=== PATIENT | male | born 1940 | race Caucasian/White ===

== ENCOUNTER 2018-03-25 10:09 | Inpatient (IN) ==
[2018-03-25] MEDS ORDERED: ENOXAPARIN 100 MG/ML SYRINGE SUBCUT STA (10:40)
[2018-03-25 10:53] LABS: Basophils % 0.4 % (0.0-0.8); Eosinophils # 0.1 10*3/uL (0.0-0.87); Eosinophils % 1.6 % (0.00-10.9); Hematocrit 40.8 VOL% (42.0-52.0); Hemoglobin 13.7 GM/DL (14.0-18.0); Immature Granulocytes % 0.4 %; Immature Granulocytes Absolute 0.02 #; Lymphocytes # 1.3 10*3/uL (1.4-4.0); Lymphocytes % 25.8 % (21.2-54.2); Mean Corpuscular HGB Conc 33.6 GM/DL (32-36); Mean Corpuscular Hemoglobin 30 PG (27-34); Mean Corpuscular Volume 90.7 FL (87-102); Mean Platelet Volume 9.4 FL (9.6-12.0); Monocytes # 0.3 10*3/uL (0.11-0.8); Monocytes % 6.8 % (1.7-12.7); Neutrophils # 3.3 10*3/uL (1.4-7.4); Platelet Count 158 T/CUMM (130-400); Red Cell Distribution Width 12.5 % (9.3-17.3)
[2018-03-25] MEDS ORDERED: ENOXAPARIN 120 MG/0.8 ML SYRINGE SUBCUT ONE (11:07)
[2018-03-25 11:24] LABS: Albumin 3.7 G/DL (3.4-5.0); Bilirubin,Total 0.7 MG/DL (0.2-1.0); CKMB % 3.3 %; Calcium 8.8 MG/DL (8.5-10.1); Osmolality,Calculated 284.4 MOS/KG (273-304); Potassium 3.9 MMOL/L (3.5-5.1); Total Protein 7.1 G/DL (6.4-8.3); Troponin I 0.113 NG/ML (0.00-0.045)
[2018-03-25] MEDS ORDERED: LACTULOSE 20 GM/30 ML UDCUP PO PRN (14:46)
[2018-03-25] MEDS ORDERED: POTASSIUM CHLORIDE 20 MEQ TABLET PO PRN (14:46)
[2018-03-25] MEDS ORDERED: MORPHINE 4 MG/1 ML VIAL IV PRN (14:46)
[2018-03-25] MEDS ORDERED: ONDANSETRON 4 MG/2 ML VIAL IV PRN (14:46)
[2018-03-25] MEDS ORDERED: DOCUSATE SODIUM 100 MG CAPSULE PO PRN (14:46)
[2018-03-25] MEDS ORDERED: MAGNESIUM SULF RIDER 2 GM in PREMIX 1 EACH IV PRN ×2 (14:46→17:24)
[2018-03-25] MEDS ORDERED: ALUM/MAG/SIMETH/LIDO VISC 1:1 30 ML BOTTLE PO PRN (15:00)
[2018-03-25] MEDS ORDERED: CARVEDILOL 12.5 MG TABLET PO SCH (17:00)
[2018-03-25] MEDS: CARVEDILOL 25 MG TABLET PO SCH (17:06)
[2018-03-25] MEDS: NITROGLYCERIN 2% OINT 1 INCH/GM PACK TOP SCH (17:06)
[2018-03-25] MEDS: GABAPENTIN 400 MG CAPSULE PO SCH ×2 (17:06→20:48)
[2018-03-25] MEDS ORDERED: POTASSIUM CHLORIDE RIDER 10 MEQ in PREMIX 1 EACH IV PRN (17:24)
[2018-03-25 18:00] LABS: PT Patient Result 10.7 SECS
[2018-03-25] MEDS: SODIUM CHLORIDE 0.45% 1,000 ML IV SCH (18:15)
[2018-03-25 20:08] LABS: CKMB % 6.4 %
[2018-03-25 20:18] LABS: Troponin I 2.73 NG/ML (0.00-0.045)
[2018-03-25] MEDS: ATORVASTATIN 40 MG TABLET PO SCH (20:48)
[2018-03-25] MEDS: BENZTROPINE 1 MG TABLET PO SCH (20:48)
[2018-03-25] MEDS: CARBIDOPA/LEVODOPA 25-100 MG TABLET PO SCH (20:48)
[2018-03-25] MEDS: glipiZIDE 5 MG TABLET PO SCH (20:48)
[2018-03-26] MEDS: ENOXAPARIN 120 MG/0.8 ML SYRINGE SUBCUT SCH ×2 (00:06→09:53)
[2018-03-26] MEDS: NITROGLYCERIN 2% OINT 1 INCH/GM PACK TOP SCH ×3 (00:07→13:10)
[2018-03-26 03:27] LABS: Basophils % 0.4 % (0.0-0.8); Eosinophils # 0.1 10*3/uL (0.0-0.87); Eosinophils % 1.3 % (0.00-10.9); Hematocrit 36.2 VOL% (42.0-52.0); Hemoglobin 12.2 GM/DL (14.0-18.0); Immature Granulocytes % 0.2 %; Immature Granulocytes Absolute 0.01 #; Lymphocytes # 2.1 10*3/uL (1.4-4.0); Mean Corpuscular HGB Conc 33.7 GM/DL (32-36); Mean Corpuscular Hemoglobin 31 PG (27-34); Mean Corpuscular Volume 90.5 FL (87-102); Mean Platelet Volume 9.6 FL (9.6-12.0); Monocytes # 0.5 10*3/uL (0.11-0.8); Monocytes % 8.5 % (1.7-12.7); Neutrophils # 2.9 10*3/uL (1.4-7.4); Neutrophils % 51.6 % (38.7-73.9); Platelet Count 155 T/CUMM (130-400); Red Cell Distribution Width 12.5 % (9.3-17.3); White Blood Count 5.5 T/CUMM (4-12)
[2018-03-26 04:03] LABS: Osmolality,Calculated 281.4 MOS/KG (273-304); Potassium 3.8 MMOL/L (3.5-5.1); Risk Ratio 4.16; Thyroid Stimulating Hormone 1.83 uIU/ml (0.358-3.74); VLDL CHOLESTEROL 50.8 MG/DL
[2018-03-26] MEDS: SODIUM CHLORIDE 0.45% 1,000 ML IV SCH ×3 (05:22→17:44)
[2018-03-26 06:55] LABS: CKMB % 5.2 %
[2018-03-26 06:56] LABS: Troponin I 2.04 NG/ML (0.00-0.045)
[2018-03-26] MEDS ORDERED: diphenhydrAMINE CAP 25 MG CAPSULE PO ONE (08:00)
[2018-03-26] MEDS ORDERED: DIAZEPAM 5 MG TABLET PO ONE (08:00)
[2018-03-26] MEDS ORDERED: PANTOPRAZOLE 40 MG TABLET PO SCH (09:00)
[2018-03-26] MEDS: CARVEDILOL 25 MG TABLET PO SCH ×2 (09:43→16:32)
[2018-03-26] MEDS: FERROUS SULFATE 325 MG TABLET PO SCH (09:44)
[2018-03-26] MEDS: ASPIRIN EC 81 MG TABLET PO SCH (09:44)
[2018-03-26] MEDS: glipiZIDE 5 MG TABLET PO SCH ×2 (09:44→23:08)
[2018-03-26] MEDS: GABAPENTIN 400 MG CAPSULE PO SCH ×4 (09:44→23:07)
[2018-03-26] MEDS: TAMSULOSIN 0.4 MG CAPSULE PO SCH (09:44)
[2018-03-26] MEDS: CLOPIDOGREL 75 MG TABLET PO SCH (09:45)
[2018-03-26] MEDS: ALLOPURINOL 300 MG TABLET PO SCH (09:45)
[2018-03-26] MEDS: CARBIDOPA/LEVODOPA 25-100 MG TABLET PO SCH ×3 (09:45→23:08)
[2018-03-26] MEDS ORDERED: LIDOCAINE 1%/EPI INJ 20 ML VIAL ONE (10:19)
[2018-03-26] MEDS ORDERED: HEPARIN/NACL 0.9% 2 UNITS/ML 1,000 ML IV ONE (10:19)
[2018-03-26] MEDS ORDERED: MIDAZOLAM 2 MG/2 ML VIAL ONE (10:48)
[2018-03-26] MEDS ORDERED: fentaNYL 100 MCG/2 ML VIAL ONE (10:48)
[2018-03-26] MEDS ORDERED: TIROFIBAN 5,000 MCG/100 ML PREMIX IV ONE (11:06)
[2018-03-26] MEDS ORDERED: TIROFIBAN 5,000 MCG/100 ML PREMIX IV SCH (11:18)
[2018-03-26] MEDS ORDERED: NITROGLYCERIN DRIP 50 MG/250 ML BOTTLE IV PRN (11:29)
[2018-03-26] MEDS ORDERED: CLOPIDOGREL 300 MG TABLET ONE (11:39)
[2018-03-26] MEDS ORDERED: NON-FORMULARY MEDICATION (Nicotine Polacrilex [Nicotine Lozenge] 4 MG) BUCCAL SCH (13:08)
[2018-03-26] MEDS ORDERED: diphenhydrAMINE CAP 25 MG CAPSULE PO PRN (14:11)
[2018-03-26] MEDS: BENZTROPINE 1 MG TABLET PO SCH (23:07)
[2018-03-26] MEDS: ATORVASTATIN 40 MG TABLET PO SCH (23:08)
[2018-03-27 04:09] LABS: Basophils % 0.3 % (0.0-0.8); Eosinophils # 0.1 10*3/uL (0.0-0.87); Eosinophils % 1.1 % (0.00-10.9); Hematocrit 36.8 VOL% (42.0-52.0); Hemoglobin 12.3 GM/DL (14.0-18.0); Immature Granulocytes % 0.2 %; Immature Granulocytes Absolute 0.01 #; Lymphocytes # 1.4 10*3/uL (1.4-4.0); Mean Corpuscular HGB Conc 33.4 GM/DL (32-36); Mean Corpuscular Hemoglobin 30 PG (27-34); Mean Corpuscular Volume 90.2 FL (87-102); Mean Platelet Volume 10.1 FL (9.6-12.0); Monocytes # 0.3 10*3/uL (0.11-0.8); Monocytes % 5.5 % (1.7-12.7); Neutrophils # 4.4 10*3/uL (1.4-7.4); Neutrophils % 70.9 % (38.7-73.9); Platelet Count 115 T/CUMM (130-400); Red Blood Count 4.08 MC/CUMM (3.8-5.5); Red Cell Distribution Width 12.5 % (9.3-17.3); White Blood Count 6.1 T/CUMM (4-12)
[2018-03-27 04:31] LABS: Calcium 8.1 MG/DL (8.5-10.1); Osmolality,Calculated 285.3 MOS/KG (273-304); Potassium 3.9 MMOL/L (3.5-5.1)
[2018-03-27] MEDS ORDERED: PANTOPRAZOLE 40 MG TABLET PO SCH (09:00)
[2018-03-27] MEDS ORDERED: CHOLECALCIFEROL 1,000 UNIT TABLET PO SCH (09:00)
[2018-03-27] MEDS ORDERED: CYANOCOBALAMIN 500 MCG TABLET PO SCH (09:00)
[2018-03-27] MEDS: CLOPIDOGREL 75 MG TABLET PO SCH (09:05)
[2018-03-27] MEDS: GABAPENTIN 400 MG CAPSULE PO SCH (09:07)
[2018-03-27] MEDS: CARBIDOPA/LEVODOPA 25-100 MG TABLET PO SCH (09:08)
[2018-03-27] MEDS: ALLOPURINOL 300 MG TABLET PO SCH (09:08)
[2018-03-27] MEDS: FERROUS SULFATE 325 MG TABLET PO SCH (09:08)
[2018-03-27] MEDS: CARVEDILOL 25 MG TABLET PO SCH (09:08)
[2018-03-27] MEDS: ASPIRIN EC 81 MG TABLET PO SCH (09:08)
[2018-03-27] MEDS: TAMSULOSIN 0.4 MG CAPSULE PO SCH (09:08)
[2018-03-27] MEDS: glipiZIDE 5 MG TABLET PO SCH (09:09)
[2018-03-27 11:09] VITALS: BP 118/59
== END 2018-03-27 12:37 | disposition home or self-care (01) | DRG 247 ==
LOC: N.EDINP 10:09 → N.ED 10:09 → N.EDINP 15:15 → N.TELES 15:31 → N.ICU 03-26 11:50
PROVIDERS: ADMIT Internal Medicine; ATTEND Internal Medicine
PROC: CLCCHCL (ICD-10-PCS; 2018-03-26 10:45)

== ENCOUNTER 2018-07-26 13:11 | Inpatient (IN) ==
[2018-07-26 13:54] LABS: Basophils % 0.3 % (0.0-0.8); Eosinophils # 0.1 10*3/uL (0.0-0.87); Eosinophils % 1.4 % (0.00-10.9); Hematocrit 38.1 VOL% (42.0-52.0); Hemoglobin 12.6 GM/DL (14.0-18.0); Immature Granulocytes % 0.3 %; Immature Granulocytes Absolute 0.02 #; Lymphocytes # 1.1 10*3/uL (1.4-4.0); Lymphocytes % 17.9 % (21.2-54.2); Mean Corpuscular HGB Conc 33.1 GM/DL (32-36); Mean Corpuscular Hemoglobin 30 PG (27-34); Mean Corpuscular Volume 90.1 FL (87-102); Mean Platelet Volume 9.7 FL (9.6-12.0); Monocytes # 0.4 10*3/uL (0.11-0.8); Monocytes % 6.1 % (1.7-12.7); Neutrophils # 4.4 10*3/uL (1.4-7.4); Platelet Count 151 T/CUMM (130-400); Red Blood Count 4.23 MC/CUMM (3.8-5.5); Red Cell Distribution Width 13.1 % (9.3-17.3); White Blood Count 5.9 T/CUMM (4-12)
[2018-07-26] MEDS ORDERED: ASPIRIN 325 MG TABLET PO STA (14:10)
[2018-07-26] MEDS ORDERED: NITROGLYCERIN SL 0.4 MG TABLET SL PRN ×2 (14:10→17:02)
[2018-07-26 14:17] LABS: Albumin 3.5 G/DL (3.4-5.0); Bilirubin,Total 0.4 MG/DL (0.2-1.0); Calcium 8.3 MG/DL (8.5-10.1); Osmolality,Calculated 285.3 MOS/KG (273-304); Potassium 4.2 MMOL/L (3.5-5.1)
[2018-07-26 16:10] LABS: Apearance,Urine CLEAR (Clear); Bilirubin,Urine Negative (Negative); Blood, Urine Negative (Negative); Glucose,Urine (UA) Negative (Negative); Ketones,Urine Negative (Negative); Nitrite,Urine Negative (Negative); Protein,Urine Negative; RBC,Urine <1 /HPF (0-4); Urine Color Straw (Yellow); Urine Urobilinogen < 2.0 EU/DL (0.2-1.0)
[2018-07-26] MEDS ORDERED: DEXTROSE 50% 25 GM/50 ML VIAL IV PRN (17:00)
[2018-07-26] MEDS ORDERED: ONDANSETRON 4 MG/2 ML VIAL IV PRN (17:00)
[2018-07-26] MEDS ORDERED: GLUCAGON 1 MG VIAL IM PRN (17:00)
[2018-07-26] MEDS ORDERED: MAGNESIUM SULF RIDER 2 GM in PREMIX 1 EACH IV PRN (17:03)
[2018-07-26] MEDS ORDERED: NON-FORMULARY MEDICATION (Nicotine Polacrilex [Nicotine Lozenge] 4 MG) BUCCAL SCH (17:15)
[2018-07-26] MEDS ORDERED: ATORVASTATIN 40 MG TABLET PO SCH (17:30)
[2018-07-26] MEDS: SODIUM CHLORIDE 0.45% 1,000 ML IV SCH (18:12)
[2018-07-26] MEDS: ENOXAPARIN 120 MG/0.8 ML SYRINGE SUBCUT SCH (18:13)
[2018-07-26] MEDS: NITROGLYCERIN 2% OINT 1 INCH/GM PACK TOP SCH (18:14)
[2018-07-26 18:43] LABS: Basophils % 0.1 % (0.0-0.8); Eosinophils # 0.1 10*3/uL (0.0-0.87); Eosinophils % 1.3 % (0.00-10.9); Hematocrit 42.4 VOL% (42.0-52.0); Hemoglobin 13.6 GM/DL (14.0-18.0); Immature Granulocytes % 0.3 %; Immature Granulocytes Absolute 0.02 #; Lymphocytes % 29.2 % (21.2-54.2); Mean Corpuscular HGB Conc 32.1 GM/DL (32-36); Mean Corpuscular Hemoglobin 29 PG (27-34); Mean Platelet Volume 9.4 FL (9.6-12.0); Monocytes # 0.4 10*3/uL (0.11-0.8); Neutrophils # 4.4 10*3/uL (1.4-7.4); Neutrophils % 63.1 % (38.7-73.9); Platelet Count 161 T/CUMM (130-400); Red Blood Count 4.66 MC/CUMM (3.8-5.5); White Blood Count 6.9 T/CUMM (4-12)
[2018-07-26] MEDS: INSULIN REGULAR 100 UNIT/ML SUBCUT SCH (21:39)
[2018-07-26] MEDS: BENZTROPINE 1 MG TABLET PO SCH (21:40)
[2018-07-26] MEDS: GABAPENTIN 400 MG CAPSULE PO SCH (21:40)
[2018-07-26] MEDS: CARVEDILOL 12.5 MG TABLET PO SCH (21:40)
[2018-07-26] MEDS: CARBIDOPA/LEVODOPA 25-100 MG TABLET PO SCH (21:40)
[2018-07-26] MEDS: glipiZIDE 5 MG TABLET PO SCH (21:41)
[2018-07-27] MEDS: NITROGLYCERIN 2% OINT 1 INCH/GM PACK TOP SCH ×2 (00:34→06:12)
[2018-07-27 04:49] LABS: Basophils % 0.2 % (0.0-0.8); Eosinophils # 0.1 10*3/uL (0.0-0.87); Eosinophils % 1.6 % (0.00-10.9); Hematocrit 35.6 VOL% (42.0-52.0); Hemoglobin 11.6 GM/DL (14.0-18.0); Immature Granulocytes % 0.2 %; Immature Granulocytes Absolute 0.01 #; Lymphocytes # 1.6 10*3/uL (1.4-4.0); Lymphocytes % 35.1 % (21.2-54.2); Mean Corpuscular HGB Conc 32.6 GM/DL (32-36); Mean Corpuscular Hemoglobin 30 PG (27-34); Mean Corpuscular Volume 91.3 FL (87-102); Mean Platelet Volume 9.9 FL (9.6-12.0); Monocytes # 0.4 10*3/uL (0.11-0.8); Monocytes % 8.6 % (1.7-12.7); Neutrophils # 2.4 10*3/uL (1.4-7.4); Neutrophils % 54.3 % (38.7-73.9); Platelet Count 148 T/CUMM (130-400); Red Cell Distribution Width 13.1 % (9.3-17.3); White Blood Count 4.4 T/CUMM (4-12)
[2018-07-27 05:07] LABS: Calcium 8.1 MG/DL (8.5-10.1); Osmolality,Calculated 281.3 MOS/KG (273-304); Potassium 3.3 MMOL/L (3.5-5.1); Risk Ratio 3.33; VLDL CHOLESTEROL 32.8 MG/DL
[2018-07-27] MEDS: ENOXAPARIN 120 MG/0.8 ML SYRINGE SUBCUT SCH ×2 (06:12→17:10)
[2018-07-27] MEDS: POTASSIUM CHLORIDE 20 MEQ TABLET PO PRN ×2 (06:13→11:02)
[2018-07-27] MEDS: SODIUM CHLORIDE 0.45% 1,000 ML IV SCH ×2 (06:29→20:46)
[2018-07-27] MEDS: ACETAMINOPHEN 325 MG TABLET PO PRN ×2 (08:37→17:10)
[2018-07-27] MEDS: INSULIN REGULAR 100 UNIT/ML SUBCUT SCH ×4 (09:25→20:46)
[2018-07-27] MEDS: TAMSULOSIN 0.4 MG CAPSULE PO SCH (11:00)
[2018-07-27] MEDS: ISOSORBIDE MONONITRATE 30 MG TABLET PO SCH (11:00)
[2018-07-27] MEDS: ALLOPURINOL 300 MG TABLET PO SCH (11:01)
[2018-07-27] MEDS: glipiZIDE 5 MG TABLET PO SCH ×2 (11:01→20:45)
[2018-07-27] MEDS: GABAPENTIN 400 MG CAPSULE PO SCH ×4 (11:01→20:45)
[2018-07-27] MEDS: CHOLECALCIFEROL 1,000 UNIT TABLET PO SCH (11:01)
[2018-07-27] MEDS: CLOPIDOGREL 75 MG TABLET PO SCH (11:01)
[2018-07-27] MEDS: CARVEDILOL 12.5 MG TABLET PO SCH ×2 (11:02→20:44)
[2018-07-27] MEDS: FERROUS SULFATE 325 MG TABLET PO SCH (11:02)
[2018-07-27] MEDS: ASPIRIN EC 81 MG TABLET PO SCH (11:02)
[2018-07-27] MEDS: CARBIDOPA/LEVODOPA 25-100 MG TABLET PO SCH ×3 (11:03→20:45)
[2018-07-27] MEDS: CYANOCOBALAMIN 500 MCG TABLET PO SCH (11:11)
[2018-07-27] MEDS: POLYVINYL ALCOHOL 1.4% OPH SOLN 15 ML BOTTLE BOTH EYES PRN (17:32)
[2018-07-27] MEDS: BENZTROPINE 1 MG TABLET PO SCH (20:45)
[2018-07-28 04:04] LABS: Basophils % 0.7 % (0.0-0.8); Eosinophils # 0.1 10*3/uL (0.0-0.87); Eosinophils % 2.3 % (0.00-10.9); Hematocrit 33.9 VOL% (42.0-52.0); Immature Granulocytes % 0.2 %; Immature Granulocytes Absolute 0.01 #; Lymphocytes # 1.8 10*3/uL (1.4-4.0); Mean Corpuscular HGB Conc 32.4 GM/DL (32-36); Mean Corpuscular Hemoglobin 30 PG (27-34); Mean Corpuscular Volume 90.9 FL (87-102); Monocytes # 0.4 10*3/uL (0.11-0.8); Monocytes % 8.2 % (1.7-12.7); Neutrophils % 45.6 % (38.7-73.9); Platelet Count 143 T/CUMM (130-400); Red Blood Count 3.73 MC/CUMM (3.8-5.5); White Blood Count 4.3 T/CUMM (4-12)
[2018-07-28 04:32] LABS: Calcium 8.2 MG/DL (8.5-10.1); Potassium 3.7 MMOL/L (3.5-5.1)
[2018-07-28] MEDS: ENOXAPARIN 120 MG/0.8 ML SYRINGE SUBCUT SCH ×2 (06:01→16:54)
[2018-07-28] MEDS ORDERED: DIAZEPAM 5 MG TABLET PO ONE (08:03)
[2018-07-28] MEDS ORDERED: diphenhydrAMINE CAP 25 MG CAPSULE PO ONE (08:03)
[2018-07-28] MEDS: INSULIN REGULAR 100 UNIT/ML SUBCUT SCH ×4 (08:47→20:33)
[2018-07-28] MEDS: CYANOCOBALAMIN 500 MCG TABLET PO SCH (08:48)
[2018-07-28] MEDS: ASPIRIN EC 81 MG TABLET PO SCH (08:49)
[2018-07-28] MEDS: CLOPIDOGREL 75 MG TABLET PO SCH (08:49)
[2018-07-28] MEDS: GABAPENTIN 400 MG CAPSULE PO SCH ×4 (08:49→20:32)
[2018-07-28] MEDS: glipiZIDE 5 MG TABLET PO SCH ×2 (08:49→20:32)
[2018-07-28] MEDS: POTASSIUM CHLORIDE 20 MEQ TABLET PO PRN (08:49)
[2018-07-28] MEDS: ISOSORBIDE MONONITRATE 30 MG TABLET PO SCH (08:50)
[2018-07-28] MEDS: CARVEDILOL 12.5 MG TABLET PO SCH ×2 (08:51→20:33)
[2018-07-28] MEDS: ALLOPURINOL 300 MG TABLET PO SCH (08:51)
[2018-07-28] MEDS: CHOLECALCIFEROL 1,000 UNIT TABLET PO SCH (08:51)
[2018-07-28] MEDS: CARBIDOPA/LEVODOPA 25-100 MG TABLET PO SCH ×3 (08:51→20:33)
[2018-07-28] MEDS: FERROUS SULFATE 325 MG TABLET PO SCH (08:52)
[2018-07-28] MEDS: TAMSULOSIN 0.4 MG CAPSULE PO SCH (08:52)
[2018-07-28] MEDS: ACETAMINOPHEN 325 MG TABLET PO PRN (10:48)
[2018-07-28] MEDS: SODIUM CHLORIDE 0.45% 1,000 ML IV SCH (14:05)
[2018-07-28] MEDS: BENZTROPINE 1 MG TABLET PO SCH (20:34)
[2018-07-29] MEDS: SODIUM CHLORIDE 0.45% 1,000 ML IV SCH ×2 (00:29→12:00)
[2018-07-29] MEDS: POLYVINYL ALCOHOL 1.4% OPH SOLN 15 ML BOTTLE BOTH EYES PRN (03:52)
[2018-07-29 05:24] LABS: Basophils % 0.2 % (0.0-0.8); Eosinophils # 0.1 10*3/uL (0.0-0.87); Eosinophils % 1.9 % (0.00-10.9); Hemoglobin 11.2 GM/DL (14.0-18.0); Immature Granulocytes % 0.2 %; Immature Granulocytes Absolute 0.01 #; Lymphocytes % 42.5 % (21.2-54.2); Mean Corpuscular Hemoglobin 29 PG (27-34); Mean Corpuscular Volume 91.1 FL (87-102); Monocytes # 0.4 10*3/uL (0.11-0.8); Monocytes % 8.2 % (1.7-12.7); Neutrophils # 2.2 10*3/uL (1.4-7.4); Platelet Count 138 T/CUMM (130-400); Red Blood Count 3.84 MC/CUMM (3.8-5.5); Red Cell Distribution Width 13.1 % (9.3-17.3); White Blood Count 4.8 T/CUMM (4-12)
[2018-07-29 05:36] LABS: Calcium 8.2 MG/DL (8.5-10.1); Potassium 3.6 MMOL/L (3.5-5.1)
[2018-07-29] MEDS: ENOXAPARIN 120 MG/0.8 ML SYRINGE SUBCUT SCH (06:10)
[2018-07-29] MEDS ORDERED: HEPARIN/NACL 0.9% 2 UNITS/ML 1,000 ML IV ONE (08:11)
[2018-07-29] MEDS ORDERED: LIDOCAINE 1%/EPI INJ 20 ML VIAL ONE (08:11)
[2018-07-29] MEDS ORDERED: diphenhydrAMINE CAP 25 MG CAPSULE ONE (08:16)
[2018-07-29] MEDS ORDERED: DIAZEPAM 5 MG TABLET ONE (08:16)
[2018-07-29] MEDS: CLOPIDOGREL 75 MG TABLET PO SCH (08:20)
[2018-07-29] MEDS: CARVEDILOL 12.5 MG TABLET PO SCH (08:20)
[2018-07-29] MEDS: ISOSORBIDE MONONITRATE 30 MG TABLET PO SCH (08:20)
[2018-07-29] MEDS: ASPIRIN EC 81 MG TABLET PO SCH (08:20)
[2018-07-29] MEDS: POTASSIUM CHLORIDE 20 MEQ TABLET PO PRN (08:20)
[2018-07-29] MEDS: GABAPENTIN 400 MG CAPSULE PO SCH ×4 (08:22→21:27)
[2018-07-29] MEDS: INSULIN REGULAR 100 UNIT/ML SUBCUT SCH ×4 (08:22→21:27)
[2018-07-29] MEDS: ALLOPURINOL 300 MG TABLET PO SCH (08:23)
[2018-07-29] MEDS: CHOLECALCIFEROL 1,000 UNIT TABLET PO SCH (08:23)
[2018-07-29] MEDS: CYANOCOBALAMIN 500 MCG TABLET PO SCH (08:23)
[2018-07-29] MEDS: CARBIDOPA/LEVODOPA 25-100 MG TABLET PO SCH ×3 (08:23→21:27)
[2018-07-29] MEDS: TAMSULOSIN 0.4 MG CAPSULE PO SCH (08:24)
[2018-07-29] MEDS: glipiZIDE 5 MG TABLET PO SCH ×2 (08:24→21:27)
[2018-07-29] MEDS: FERROUS SULFATE 325 MG TABLET PO SCH (08:24)
[2018-07-29] MEDS ORDERED: diphenhydrAMINE CAP 25 MG CAPSULE PO ONE (08:30)
[2018-07-29] MEDS ORDERED: DIAZEPAM 5 MG TABLET PO ONE (08:30)
[2018-07-29] MEDS ORDERED: fentaNYL 100 MCG/2 ML VIAL ONE (08:32)
[2018-07-29] MEDS ORDERED: MIDAZOLAM 2 MG/2 ML VIAL ONE (08:32)
[2018-07-29] MEDS ORDERED: TIROFIBAN 5,000 MCG/100 ML PREMIX IV ONE (09:05)
[2018-07-29] MEDS ORDERED: TIROFIBAN 5,000 MCG/100 ML PREMIX IV SCH (09:27)
[2018-07-29] MEDS ORDERED: CLOPIDOGREL 75 MG TABLET ONE (09:29)
[2018-07-29] MEDS ORDERED: HYDROmorphone 2 MG/1 ML VIAL IV PRN (10:12)
[2018-07-29] MEDS: CARVEDILOL 25 MG TABLET PO SCH (16:53)
[2018-07-29] MEDS: BENZTROPINE 1 MG TABLET PO SCH (21:27)
[2018-07-30] MEDS: SODIUM CHLORIDE 0.45% 1,000 ML IV SCH (02:04)
[2018-07-30 05:03] LABS: Basophils % 0.2 % (0.0-0.8); Eosinophils # 0.1 10*3/uL (0.0-0.87); Eosinophils % 1.4 % (0.00-10.9); Hematocrit 37.2 VOL% (42.0-52.0); Immature Granulocytes % 0.2 %; Immature Granulocytes Absolute 0.01 #; Lymphocytes # 1.4 10*3/uL (1.4-4.0); Lymphocytes % 25.1 % (21.2-54.2); Mean Corpuscular HGB Conc 32.3 GM/DL (32-36); Mean Corpuscular Hemoglobin 30 PG (27-34); Mean Corpuscular Volume 92.3 FL (87-102); Mean Platelet Volume 10.1 FL (9.6-12.0); Monocytes # 0.4 10*3/uL (0.11-0.8); Monocytes % 7.1 % (1.7-12.7); Neutrophils # 3.7 10*3/uL (1.4-7.4); Red Blood Count 4.03 MC/CUMM (3.8-5.5); White Blood Count 5.6 T/CUMM (4-12)
[2018-07-30 05:05] LABS: Platelet Count 98 T/CUMM (130-400)
[2018-07-30 05:06] LABS: Calcium 8.1 MG/DL (8.5-10.1); Osmolality,Calculated 279.5 MOS/KG (273-304); Potassium 3.9 MMOL/L (3.5-5.1)
[2018-07-30] MEDS: INSULIN REGULAR 100 UNIT/ML SUBCUT SCH ×2 (08:31→12:05)
[2018-07-30] MEDS: CHOLECALCIFEROL 1,000 UNIT TABLET PO SCH (08:35)
[2018-07-30] MEDS: CYANOCOBALAMIN 500 MCG TABLET PO SCH (08:35)
[2018-07-30] MEDS: ASPIRIN EC 81 MG TABLET PO SCH (08:36)
[2018-07-30] MEDS: TAMSULOSIN 0.4 MG CAPSULE PO SCH (08:36)
[2018-07-30] MEDS: CLOPIDOGREL 75 MG TABLET PO SCH (08:36)
[2018-07-30] MEDS: ALLOPURINOL 300 MG TABLET PO SCH (08:36)
[2018-07-30] MEDS: CARBIDOPA/LEVODOPA 25-100 MG TABLET PO SCH (08:36)
[2018-07-30] MEDS: FERROUS SULFATE 325 MG TABLET PO SCH (08:36)
[2018-07-30] MEDS: glipiZIDE 5 MG TABLET PO SCH (08:36)
[2018-07-30] MEDS: CARVEDILOL 25 MG TABLET PO SCH (08:37)
[2018-07-30] MEDS: GABAPENTIN 400 MG CAPSULE PO SCH (08:37)
[2018-07-30] MEDS: ISOSORBIDE MONONITRATE 30 MG TABLET PO SCH (08:37)
[2018-07-30] MEDS ORDERED: ATORVASTATIN 40 MG TABLET PO SCH (09:30)
[2018-07-30 12:31] VITALS: BP 126/68
== END 2018-07-30 13:55 | disposition home or self-care (01) | DRG 247 ==
LOC: N.EDINP 13:11 → N.ED 13:11 → SUATTDRO 17:00 → N.TELES 17:37 → SUATTDRO 07-29 14:34
PROVIDERS: ADMIT Hospitalist; ATTEND Internal Medicine
PROC: CLCCHCL (ICD-10-PCS; 2018-07-29 09:15)

== ENCOUNTER 2020-01-12 16:49 | Observation (INO) ==
[2020-01-12 17:32] LABS: Basophils % 0.3 % (0.0-0.8); Eosinophils # 0.2 10*3/uL (0.0-0.87); Eosinophils % 2.5 % (0.00-10.9); Hematocrit 38.2 VOL% (42.0-52.0); Immature Granulocytes % 0.3 %; Immature Granulocytes Absolute 0.02 #; Lymphocytes # 1.7 10*3/uL (1.4-4.0); Lymphocytes % 26.2 % (21.2-54.2); Mean Corpuscular Volume 92.7 FL (87-102); Mean Platelet Volume 9.3 FL (9.6-12.0); Monocytes % 7.3 % (1.7-12.7); Neutrophils % 63.4 % (38.7-73.9); Platelet Count 161 T/CUMM (130-400); Red Blood Count 4.12 MC/CUMM (3.8-5.5); Red Cell Distribution Width 13.4 % (9.3-17.3); White Blood Count 6.5 T/CUMM (4-12)
[2020-01-12 17:54] LABS: Albumin 3.6 G/DL (3.4-5.0); Bilirubin,Total 0.6 MG/DL (0.2-1.0); Calcium 8.7 MG/DL (8.5-10.1); Osmolality,Calculated 282.5 MOS/KG (273-304); Total Protein 7.3 G/DL (6.4-8.3)
[2020-01-12] MEDS ORDERED: ASPIRIN 325 MG TABLET PO STA ×2 (18:53)
[2020-01-12] MEDS ORDERED: ONDANSETRON 4 MG/2 ML VIAL IV STA (18:53)
[2020-01-12] MEDS ORDERED: NITROGLYCERIN 2% OINT 1 INCH/GM PACK TOP STA (18:53)
[2020-01-12] MEDS ORDERED: MORPHINE 4 MG/1 ML VIAL IV STA (18:53)
[2020-01-12] MEDS ORDERED: ENOXAPARIN 100 MG/ML SYRINGE SUBCUT STA (18:55)
[2020-01-12 19:13] LABS: PT Patient Result 11.2 SECS (9.8-11.9)
[2020-01-12] MEDS ORDERED: NITROGLYCERIN SL 0.4 MG TABLET SL PRN (20:39)
[2020-01-12] MEDS ORDERED: MORPHINE 4 MG/1 ML VIAL IV PRN (20:46)
[2020-01-12] MEDS ORDERED: ONDANSETRON 4 MG/2 ML VIAL IV PRN (20:46)
[2020-01-12] MEDS ORDERED: ACETAMINOPHEN 325 MG TABLET PO PRN (20:46)
[2020-01-12] MEDS ORDERED: DOCUSATE SODIUM 100 MG CAPSULE PO PRN (20:46)
[2020-01-12] MEDS ORDERED: DEXTROSE 50% 25 GM/50 ML VIAL IV PRN (20:46)
[2020-01-12] MEDS ORDERED: GLUCAGON 1 MG VIAL IM PRN (20:46)
[2020-01-12] MEDS: INSULIN LISPRO 100 UNIT/ML SUBCUT SCH (22:51)
[2020-01-12] MEDS ORDERED: APIXABAN 5 MG TABLET PO SCH (23:45)
[2020-01-12] MEDS ORDERED: traZODone 50 MG TABLET PO SCH (23:46)
[2020-01-13 01:10] LABS: Basophils % 0.4 % (0.0-0.8); Eosinophils # 0.2 10*3/uL (0.0-0.87); Eosinophils % 2.8 % (0.00-10.9); Hematocrit 38.7 VOL% (42.0-52.0); Hemoglobin 13.2 GM/DL (14.0-18.0); Immature Granulocytes % 0.4 %; Immature Granulocytes Absolute 0.02 #; Lymphocytes # 1.6 10*3/uL (1.4-4.0); Lymphocytes % 29.3 % (21.2-54.2); Mean Corpuscular HGB Conc 34.1 GM/DL (32-36); Mean Corpuscular Volume 92.1 FL (87-102); Mean Platelet Volume 9.7 FL (9.6-12.0); Monocytes % 7.7 % (1.7-12.7); Neutrophils % 59.4 % (38.7-73.9); Platelet Count 148 T/CUMM (130-400); Red Cell Distribution Width 13.3 % (9.3-17.3); White Blood Count 5.4 T/CUMM (4-12)
[2020-01-13 01:29] LABS: Calcium 8.4 MG/DL (8.5-10.1); Risk Ratio 2.8; VLDL CHOLESTEROL 55.4 MG/DL
[2020-01-13] MEDS ORDERED: NITROGLYCERIN SL 0.4 MG TABLET SL PRN (08:00)
[2020-01-13] MEDS ORDERED: NICOTINE 4 MG BUCCAL SCH (08:00)
[2020-01-13] MEDS ORDERED: CHOLECALCIFEROL 1,000 UNIT TABLET PO SCH (09:00)
[2020-01-13] MEDS ORDERED: allopurinoL 300 MG TABLET PO SCH (09:00)
[2020-01-13] MEDS ORDERED: ATORVASTATIN 40 MG TABLET PO SCH (09:00)
[2020-01-13] MEDS ORDERED: ASPIRIN EC 81 MG TABLET PO SCH (09:00)
[2020-01-13] MEDS ORDERED: CLOPIDOGREL 75 MG TABLET PO SCH (09:00)
[2020-01-13] MEDS ORDERED: CYANOCOBALAMIN 500 MCG TABLET PO SCH (09:00)
[2020-01-13] MEDS ORDERED: FERROUS SULFATE 325 MG TABLET PO SCH (09:00)
[2020-01-13] MEDS: CARBIDOPA/LEVODOPA 25-100 MG TABLET PO SCH ×3 (09:12→21:15)
[2020-01-13] MEDS: carvediloL 25 MG TABLET PO SCH ×2 (09:12→21:14)
[2020-01-13] MEDS: GABAPENTIN 400 MG CAPSULE PO SCH ×4 (09:13→21:15)
[2020-01-13] MEDS: glipiZIDE 10 MG TABLET PO SCH ×2 (09:13→21:15)
[2020-01-13] MEDS: INSULIN LISPRO 100 UNIT/ML SUBCUT SCH ×4 (09:20→21:15)
[2020-01-13] MEDS ORDERED: REGADENOSON 0.4 MG/5 ML SYRINGE IV ONE (13:41)
[2020-01-13 17:01] VITALS: BP 117/68
[2020-01-13] MEDS ORDERED: BENZTROPINE 1 MG TABLET PO SCH (21:00)
[2020-01-13] MEDS ORDERED: traZODone 50 MG TABLET PO SCH (21:00)
[2020-01-13] MEDS ORDERED: TAMSULOSIN 0.4 MG CAPSULE PO SCH (21:00)
== END 2020-01-13 21:05 | disposition home or self-care (01) ==
LOC: N.EDINP 16:49 → N.ED 16:49 → N.TELES 21:09
PROVIDERS: ADMIT Internal Medicine; ATTEND Internal Medicine

== ENCOUNTER 2021-11-23 16:53 | Observation (INO) ==
[2021-11-23] MEDS ORDERED: MORPHINE 10 MG/1 ML VIAL IV STA (17:19)
[2021-11-23] MEDS ORDERED: ONDANSETRON 4 MG/2 ML VIAL IV STA (17:19)
[2021-11-23 17:43] LABS: Basophils % 0.3 % (0.0-0.8); Eosinophils % 0.5 % (0.00-10.9); Hematocrit 41.4 VOL% (42.0-52.0); Hemoglobin 13.2 GM/DL (14.0-18.0); Immature Granulocytes % 0.3 %; Immature Granulocytes Absolute 0.02 #; Lymphocytes # 0.9 10*3/uL (1.4-4.0); Lymphocytes % 11.2 % (21.2-54.2); Mean Corpuscular HGB Conc 31.9 GM/DL (32-36); Mean Platelet Volume 10.6 FL (9.6-12.0); Monocytes # 0.7 10*3/uL (0.11-0.8); Monocytes % 8.7 % (1.7-12.7); Platelet Count 132 T/CUMM (130-400); Red Cell Distribution Width 16.6 % (9.3-17.3); White Blood Count 7.7 T/CUMM (4-12)
[2021-11-23 17:51] LABS: PT Patient Result 11.4 SECS (10.1-12.1); Partial Thromboplastin Time 30.4 SECS (23.7-32.9)
[2021-11-23 18:07] LABS: Albumin 3.6 G/DL (3.4-5.0); Bilirubin,Total 0.7 MG/DL (0.20-1.00); Calcium 8.9 MG/DL (8.5-10.1); Osmolality,Calculated 279.7 MOS/KG (273-304); Potassium 4.6 MMOL/L (3.5-5.1); Total Protein 7.3 G/DL (6.4-8.2)
[2021-11-23] MEDS ORDERED: MORPHINE 2 MG/1 ML SYRINGE ONE (18:16)
[2021-11-23] MEDS ORDERED: ONDANSETRON 4 MG/2 ML VIAL IV PRN (19:56)
[2021-11-23] MEDS ORDERED: DEXTROSE 50% 25 GM/50 ML VIAL IV PRN (19:57)
[2021-11-23] MEDS ORDERED: GLUCAGON 1 MG VIAL IM PRN ×2 (19:57)
[2021-11-23] MEDS ORDERED: ASPIRIN CHEW 81 MG TABLET PO STA (19:59)
[2021-11-23] MEDS ORDERED: DEXTROSE 10% 250 ML BAG IV PRN (20:09)
[2021-11-23] MEDS ORDERED: NITROGLYCERIN 0.1 MG/HR PATCH TRANSDERM STA (21:19)
[2021-11-23] MEDS: NITROGLYCERIN 0.4 MG/HR PATCH TRANSDERM STA ×2 (21:42→21:44)
[2021-11-23] MEDS: INSULIN REGULAR 100 UNIT/ML SUBCUT SCH (21:49)
[2021-11-23] MEDS: LEVOFLOXACIN INJ 750 MG/150 ML PREMIX IV SCH (21:50)
[2021-11-24 04:18] LABS: Basophils % 0.1 % (0.0-0.8); Eosinophils % 0.1 % (0.00-10.9); Hematocrit 41.5 VOL% (42.0-52.0); Hemoglobin 12.9 GM/DL (14.0-18.0); Immature Granulocytes % 0.5 %; Immature Granulocytes Absolute 0.06 #; Lymphocytes # 1.1 10*3/uL (1.4-4.0); Lymphocytes % 9.7 % (21.2-54.2); Mean Corpuscular HGB Conc 31.1 GM/DL (32-36); Mean Corpuscular Volume 92.8 FL (87-102); Mean Platelet Volume 9.7 FL (9.6-12.0); Monocytes # 1.2 10*3/uL (0.11-0.8); Monocytes % 10.5 % (1.7-12.7); Neutrophils % 79.1 % (38.7-73.9); Platelet Count 132 T/CUMM (130-400); Red Blood Count 4.47 MC/CUMM (3.8-5.5); Red Cell Distribution Width 16.6 % (9.3-17.3); White Blood Count 11.3 T/CUMM (4-12)
[2021-11-24 04:45] LABS: Albumin 2.9 G/DL (3.4-5.0); Bilirubin,Total 1.2 MG/DL (0.20-1.00); Calcium 8.3 MG/DL (8.5-10.1); Osmolality,Calculated 275.7 MOS/KG (273-304); Potassium 4.1 MMOL/L (3.5-5.1); Total Protein 6.7 G/DL (6.4-8.2)
[2021-11-24 04:53] LABS: Risk Ratio 1.83; Thyroid Stimulating Hormone 1.5 uIU/ml (0.358-3.74); VLDL Cholesterol 9.6 MG/DL
[2021-11-24] MEDS: INSULIN REGULAR 100 UNIT/ML SUBCUT SCH ×4 (07:59→21:01)
[2021-11-24] MEDS ORDERED: DEXTROSE 50% 25 GM/50 ML VIAL IV PRN (08:15)
[2021-11-24] MEDS ORDERED: GLUCAGON 1 MG VIAL IM PRN (08:15)
[2021-11-24] MEDS: MORPHINE 2 MG/1 ML SYRINGE IV PRN ×3 (08:40→21:02)
[2021-11-24] MEDS: PANTOPRAZOLE 40 MG TABLET PO SCH (09:15)
[2021-11-24] MEDS ORDERED: traZODone 50 MG TABLET PO PRN (12:06)
[2021-11-24] MEDS ORDERED: NITROGLYCERIN SL 0.4 MG TABLET SL PRN (12:06)
[2021-11-24] MEDS: ASPIRIN EC 81 MG TABLET PO SCH (13:31)
[2021-11-24] MEDS: carvediloL 6.25 MG TABLET PO SCH ×2 (13:31→21:01)
[2021-11-24] MEDS: GABAPENTIN 400 MG CAPSULE PO SCH ×3 (13:32→21:01)
[2021-11-24] MEDS: allopurinoL 300 MG TABLET PO SCH (13:32)
[2021-11-24] MEDS: POTASSIUM CHLORIDE 10 MEQ TABLET PO SCH (13:32)
[2021-11-24] MEDS: APIXABAN 5 MG TABLET PO SCH ×2 (13:32→21:01)
[2021-11-24] MEDS: guaiFENesin/DM ER 600-30 MG TABLET PO SCH ×2 (13:32→21:01)
[2021-11-24] MEDS: MEMANTINE 10 MG TABLET PO SCH ×2 (13:32→21:01)
[2021-11-24] MEDS: glipiZIDE 5 MG TABLET PO SCH ×2 (13:32→21:01)
[2021-11-24] MEDS: SERTRALINE 50 MG TABLET PO SCH (13:32)
[2021-11-24] MEDS: ISOSORBIDE MONONITRATE 30 MG TABLET PO SCH (13:32)
[2021-11-24] MEDS: CARBIDOPA/LEVODOPA 25-100 MG TABLET PO SCH ×2 (15:39→21:01)
[2021-11-24] MEDS ORDERED: BENZTROPINE 0.5 MG TABLET PO SCH (21:00)
[2021-11-24] MEDS ORDERED: TAMSULOSIN 0.4 MG CAPSULE PO SCH (21:00)
[2021-11-24] MEDS: LEVOFLOXACIN INJ 750 MG/150 ML PREMIX IV SCH (21:00)
[2021-11-25 05:04] LABS: Basophils % 0.1 % (0.0-0.8); Eosinophils % 0.4 % (0.00-10.9); Hematocrit 37.8 VOL% (42.0-52.0); Hemoglobin 11.8 GM/DL (14.0-18.0); Immature Granulocytes % 0.4 %; Immature Granulocytes Absolute 0.04 #; Lymphocytes # 1.1 10*3/uL (1.4-4.0); Lymphocytes % 11.9 % (21.2-54.2); Mean Corpuscular HGB Conc 31.2 GM/DL (32-36); Mean Corpuscular Volume 93.1 FL (87-102); Mean Platelet Volume 9.9 FL (9.6-12.0); Monocytes # 0.9 10*3/uL (0.11-0.8); Monocytes % 10.1 % (1.7-12.7); Neutrophils % 77.1 % (38.7-73.9); Platelet Count 119 T/CUMM (130-400); Red Blood Count 4.06 MC/CUMM (3.8-5.5); Red Cell Distribution Width 16.7 % (9.3-17.3); White Blood Count 9.1 T/CUMM (4-12)
[2021-11-25 05:29] LABS: Albumin 2.7 G/DL (3.4-5.0); Bilirubin,Total 0.7 MG/DL (0.20-1.00); Calcium 8.4 MG/DL (8.5-10.1); Osmolality,Calculated 277.7 MOS/KG (273-304); Potassium 3.6 MMOL/L (3.5-5.1); Total Protein 6.5 G/DL (6.4-8.2)
[2021-11-25] MEDS ORDERED: PANTOPRAZOLE 40 MG TABLET PO SCH (06:00)
[2021-11-25] MEDS: INSULIN REGULAR 100 UNIT/ML SUBCUT SCH ×2 (06:59→14:09)
[2021-11-25] MEDS ORDERED: FUROSEMIDE 40 MG/4 ML VIAL IV ONE (07:41)
[2021-11-25] MEDS ORDERED: FERROUS SULFATE 325 MG TABLET PO SCH (09:00)
[2021-11-25] MEDS: ASPIRIN EC 81 MG TABLET PO SCH (09:25)
[2021-11-25] MEDS: guaiFENesin/DM ER 600-30 MG TABLET PO SCH (09:25)
[2021-11-25] MEDS: glipiZIDE 5 MG TABLET PO SCH (09:25)
[2021-11-25] MEDS: ISOSORBIDE MONONITRATE 30 MG TABLET PO SCH (09:25)
[2021-11-25] MEDS: APIXABAN 5 MG TABLET PO SCH (09:25)
[2021-11-25] MEDS: SERTRALINE 50 MG TABLET PO SCH (09:26)
[2021-11-25] MEDS: CARBIDOPA/LEVODOPA 25-100 MG TABLET PO SCH ×2 (09:26→14:08)
[2021-11-25] MEDS: MEMANTINE 10 MG TABLET PO SCH (09:26)
[2021-11-25] MEDS: POTASSIUM CHLORIDE 10 MEQ TABLET PO SCH (09:26)
[2021-11-25] MEDS: GABAPENTIN 400 MG CAPSULE PO SCH ×2 (09:26→14:08)
[2021-11-25] MEDS: PANTOPRAZOLE 40 MG TABLET PO SCH (09:26)
[2021-11-25] MEDS: carvediloL 6.25 MG TABLET PO SCH (09:26)
[2021-11-25] MEDS: allopurinoL 300 MG TABLET PO SCH (09:26)
[2021-11-25 12:37] LABS: Potassium 3.9 MMOL/L (3.5-5.1)
[2021-11-25 14:28] VITALS: BP 115/65
== END 2021-11-25 14:21 | disposition home health service (06) ==
LOC: N.ED 16:53 → N.EDINP 16:53 → N.TELES 11-24 11:13
PROVIDERS: ADMIT Family Medicine; ATTEND Family Medicine